=== PATIENT | male | born 1950 | race African-American/Black ===

== ENCOUNTER 2020-05-24 17:31 | Emergency (ER) | payer BC ==
[~2020-05-24] VITALS: Ht 172.7 cm; Wt 91.6 kg
[2020-05-24 19:29] LABS: BASOPHIL % 0.9 % (0.2-1.5); PLATELET COUNT 210 x10^3mcL (152-348)
[2020-05-24 19:46] LABS: ALBUMIN 3.8 g/dL (3.4-5.0); ALKALINE PHOSPHATASE 46 U/L (46-116); ALT/SGPT 33 U/L (16-63); AST/SGOT 22 U/L (15-37); BILIRUBIN TOTAL 0.5 mg/dL (0.20-1.00); CALCIUM 9.3 mg/dL (8.5-10.1); CARBON DIOXIDE 31.2 mmol/L (21-32); CHLORIDE SERUM 102 mmol/L (98-107); CREATININE SERUM 1.2 mg/dL (0.7-1.3); GFR1 > 60 mL/min; GLUCOSE SERUM 114 mg/dL (74-106); LIPASE 114 IU/L (73-393); SODIUM SERUM 138 mmol/L (136-145); TOTAL PROTEIN, SERUM 7.7 g/dL (6.4-8.2)
[2020-05-24 20:01] LABS: POTASSIUM SERUM 2.8 mmol/L (3.5-5.1)
[2020-05-24] MEDS ORDERED: AZITHROMYCIN500 M3 PO (20:51)
[2020-05-24 21:14] VITALS: BP 130/85
== END 2020-05-24 21:08 | disposition home or self-care (01) ==
LOC: ED 17:31
PROVIDERS: Emergency Medicine
DX: R07.89 Other chest pain (principal); R06.02 Shortness of breath
CPT/HCPCS: 83880